=== PATIENT | female | born 1960 | race Caucasian/White ===

== ENCOUNTER 2022-06-05 07:30 | Outpatient (RCR) | payer BC, SELFPAY | END 2022-06-05 10:01 | disposition home or self-care (01) | PROVIDERS: PCP Family Medicine; Visit Provider Family Medicine | DX: M70.61 Trochanteric bursitis, right hip (principal); Z51.89 Encounter for other specified aftercare | CPT/HCPCS: 97035; 97110; 97140; 97162 ==

== ENCOUNTER 2024-09-21 06:22 | Outpatient (CLI) | payer BC, SELFPAY ==
--- NOTE | 2024-09-21 07:55 | P.ANES_ITS ---
Anesthesia Charges Start Date/Time Anesthesia Start Date: 09/21/24 Anesthesia Start Time: 07:30 Stop Date/Time Anesthesia Stop Date: 09/21/24 Anesthesia Stop Time: 07:59 Coding CPT Codes CPT Codes: HANS LWR INTST NDSC NOS - 43089 ([id number]) P2 - PATIENT W/MILD SYST DISEASE, QK - INFORMATION SYSTEMS ARCHITECT 2-4 CNCRNT ANES PROC, QX - MARSHMALLOW MACHINE OPERATOR SVC W/ MD MED DIRECTION
--- NOTE | 2024-09-21 07:55 | W.ANESCHARGE ---
Anesthesia Charges Start Date/Time Anesthesia Start Date: 09/21/24 Anesthesia Start Time: 07:30 Stop Date/Time Anesthesia Stop Date: 09/21/24 Anesthesia Stop Time: 07:59 Coding CPT Codes CPT Codes: HANS LWR INTST NDSC NOS - 67690 ([id number]) P2 - PATIENT W/MILD SYST DISEASE, QK - ADMINISTRATOR OF HOME HEALTH 2-4 CNCRNT ANES PROC, QX - SENIOR ADMINISTRATIVE ASSISTANT SVC W/ MD MED DIRECTION
--- NOTE | 2024-09-21 08:02 | P.ANES_ITS ---
Anesthesia Charges Start Date/Time Anesthesia Start Date: 09/21/24 Anesthesia Start Time: 07:30 Stop Date/Time Anesthesia Stop Date: 09/21/24 Anesthesia Stop Time: 07:59 Coding CPT Codes CPT Codes: HASN LWR INTST NDSC NOS - 70050 ([id number]) P2 - PATIENT W/MILD SYST DISEASE, QK - PULPWOOD DEALER 2-4 CNCRNT ANES PROC, QX - AGENCY SALES REPRESENTATIVE SVC W/ MD MED DIRECTION
--- NOTE | 2024-09-21 08:02 | W.ANESCHARGE ---
Anesthesia Charges Start Date/Time Anesthesia Start Date: 09/21/24 Anesthesia Start Time: 07:30 Stop Date/Time Anesthesia Stop Date: 09/21/24 Anesthesia Stop Time: 07:59 Coding CPT Codes CPT Codes: HANS LWR INTST NDSC NOS - 92121 ([id number]) P2 - PATIENT W/MILD SYST DISEASE, QK - FIREWALL SECURITY ENGINEER 2-4 CNCRNT ANES PROC, QX - RADIO DIRECTOR SVC W/ MD MED DIRECTION
--- OUTSIDE RECORDS SUMMARY | 2024-09-22 02:22 | XMS_ITS | Clinical Summary ---
Author Organization [facility] Address [address] [place] [address] Care Team Providers Care Interior Design Coordinator Name Role Phone Colette Adames MD Primary Care Provider Allergies Active Allergy Reactions Criticality Noted Date Comments Anastrozole Other - Describe In Comment Field 11/25/2014 Lips swelled Medications multivitamin (MVI) tablet Take 1 tablet by mouth once daily. Active cholecalciferol (VITAMIN D) 1,000 unit tablet Take 2,000 Units by mouth once daily. Takes QID Total 8000IU daily Active rosuvastatin (CRESTOR) 10 mg tabletIndications:H yperlipidemia, unspecified hyperlipidemia type Take 1 Tablet (10 mg) by mouth at bedtime. 90 Tablet 3 4 Active lisinopriL (PRINIVIL; ZESTRIL) 40 mg tabletIndications:H ypertension, unspecified type Take 1 Tablet (40 mg) by mouth once daily. 90 Tablet 3 4 Active SUMAtriptan (IMITREX) 25 mg tabletIndications:M igraine without status migrainosus, not intractable, unspecified migraine type Take 1 Tablet (25 mg) by mouth every 2 hours if needed for Migraine. Give at minimum 2hrs apart. Max Dose: 200mg per 24hrs. 10 Tablet 3 5 Active Active Problems Problem Noted Date Diagnosed Date Pancreatic cyst 03/08/2020 Overview (04/10/2021): 9 mm, stable 03/2021, Needs repeat MRI 03/2022 Arthritis of carpometacarpal (CMC) joint of left thumb 02/23/2020 Overview (03/23/2020): Dec 2018: thumb CMC Joint cortisone injection with great benefit for 1 year. February 2020: repeat left thumb CMC Joint cortisone injection. Excellent pain relief through 1 month. Arthritis of carpometacarpal (CMC) joint of righ t thumb 02/23/2020 Overview (03/28/2021): February 2020: right thumb CMC Joint cortisone injection. Significant improvement in pain through 1 month. Mar 2021: repeat right thumb CMC Joint cortisone injection. Routine adult health maintenance 09/03/2014 Overview (09/03/2014): Colonoscopy 08/2014 internal hemorrhoids repeat in 10 years Hyperlipidemia 08/02/2014 Hypertension 08/02/2014 Breast cancer 04/12/2014 TOMPKINS (nonalcoholic steatohepatitis) 03/13/2013 Eye dryness 03/13/2013 Encounters Date Type Department Care Team Description 09/21/2024 Telephone [facility] [address] [place] [address] Rosa Mendez MD Refill Request (Gavilyte-G solution) 09/18/2024 9:40 AM CDT Office Visit [facility] [address] [place] [address] Colette Adames MD Pre-Op Exam (09/28/24 [facility] Lipoma in left ankle Dr. Magana) 09/18/2024 Travel 09/17/2024 Refill [facility] [address] [place] [address] Rosa Mendez MD Refill Request (Gavilyte-G) 09/13/2024 Travel 08/20/2024 Telephone [facility] [address] [place] [address] Ruben Magana DPM surgery scheduling (please call patient to schedule surgery/) 08/18/2024 4:00 PM CDT Office Visit [facility] [address] [facility] [address] Ruben Magana DPM Consult (Bilateral ankle pain, L>R) 08/18/2024 Travel 08/13/2024 Travel 08/06/2024 1:45 PM CDT Ancillary Procedure [facility] [address] [address] 08/05/2024 12:00 PM CDT Ancillary Procedure [facility] [address] [facility] [address] 08/05/2024 11:45 AM CDT Ancillary Procedure [facility] [address] [place] [address] 08/05/2024 10:50 AM CDT Office Visit [facility] [address] [place] [address] Ady Eller MD Ankle Pain/problem (Left Ankle Pain and Swelling. X 2-3 Weeks. Wants to rule out arthritis, Scare tissue or because of age something more serious ) 08/05/2024 Telephone [facility] [address] [facility] [address] Ruben Magana DPM Appointment 08/05/2024 Travel 08/03/2024 Travel from Last 3 Months Immunizations Immunization Administration Dates Next Due COVID-19 vaccine (Moderna 50mcg/0.5mL) 12YO+ BIVALENT PF, MDV 02/05/2022 INFLUENZA, IIV3 PF (AGE >= 6 MO) 03/02/2024 Influenza, IIV3 (Age >=3 years) 03/13/2013 Influenza, IIV4 02/04/2023,,12/01/2019,2018,02/10/2016,02/28/2015,12/03/2013 Influenza,CCIIV4 PRESERV FREE 02/02/2022 MMR 09/23/2017,08/21/2017 Pneumococcal Conj 20-valent (Prevnar 20) 02/22/2023 Tdap 02/22/2023,03/13/2013 Zoster (Shingrix-RZV, recombinant) 04/06/2019, Family History Medical History Relation Name Comments Cancer-prostate Brother Heart Disease Father Hyperlipidemia Father Hypertension Father Diabetes Maternal Grandfather Diabetes Maternal Grandmother Cancer Mother lung ca with me ts Cancer-colon Other first cousin Cancer-colon Paternal Aunt dx age 70's Cancer-breast No Family History Cancer-ovarian No Family History Relation Name Status Comments Brother Father Maternal Grandfather Maternal Grandmother Mother Other Paternal Aunt Social History Tobacco Use Types Packs/Day Years Used Date Smoking Tobacco: Never Smokeless Tobacco: Never Tobacco Cessation:Counseling Given: No Alcohol Use Standard Drinks/Week Comments Yes 0 (1 standard drink = 0.6 oz pur e alcohol) PHQ-2 Answer Date Recorded PHQ-2 TOTAL SCORE 0 03/02/2024 Social Connections Answer Date Recorded Do you often feel lonely or isolated from those around you? 0 08/05/2024 Financial Resource Strain Answer Date R ecorded Difficulty of Paying Living Expenses 3 08/03/2024 Difficulty of Paying Living Expenses Not on file 08/03/2024 Food Insecurity Answer Date Recorded Do you worry your food will run out before you are able to buy more? 1 08/05/2024 Transportation Needs Answer Date Record ed Does lack of transportation keep you from medica l appointments? 1 08/05/2024 Does lack of transportation keep you from work, meetings or getting things that you need? 1 08/05/2024 Housing Stability Answer Date Recorded What is your housing situation today? 1 08/05/2024 Utilities Answer Date Recorded Do you have trouble paying f or utilities (for example, heat, electricity, water, phone)? 1 08/05/2024 Comments No Sex and Gender Information Value Date Recorded Sex Assigned at Not on file Legal Sex Female 10:24 AM DIRECT MAIL MANAGER Gender Identity Not on file Sexual Orientation Not on file Travel History Travel Start Travel End [place] 08/23/2024 09/13/2024 Obstetrics History Para Term AB IAB SAB Ectopic Multiple Livin g Live Births 3 2 2 1 1 2 Date Outcome GA Total Labor Labor/2nd/3rd Weight Sex Type Anes PTL Carolyn A1 A5 Name Clin Term Term SAB Last Filed Vital Signs Vital Sign Reading Time Taken Comments Blood Pressure 143/83 09/18/2024 9:45 AM CDT Pulse 71 09/18/2024 9:45 AM CDT Temperature 36.8 C (98.2 F) 12/04/2021 1:25 PM CDT Respiratory Rate 14 04/20/2014 5:45 PM DIRECT MAIL MANAGER Oxygen Saturation 100% 09/18/2024 9:45 AM CDT Inhaled Oxygen Concentration - - Weight 85.7 kg (189 lb) 09/18/2024 9:45 AM CDT Height 159 cm (5' 2.6) 09/18/2024 9:45 AM CDT Body Mass Index 33.91 09/18/2024 9:45 AM CDT Plan of Treatment Upcoming Encounters Date Type Department Care Team (Late st Contact Info) Description 09/28/2024 7:30 AM CDT Office Visit [facility] at [address] [address] Ruben Magana DPM [address] [place] [address] 09/30/2024 9:30 AM CDT Office Visit [facility] [address] [place] [address] Ruben Magana DPM [address] [place] [address] 10/14/2024 9:30 AM CDT Office Visit [facility] [address] [place] [address] Ruben Magana DPM [address] [place] [address] 11/11/2024 9:30 AM CDT Office Visit [facility] [address] [place] [address] Ruben Magana DPM [address] [place] [address] Health Maintenance Due Date Last Done Comments RSV vaccine for adults or (1 - Risk 60-74 years 1-dose series) 2019 COVID-19 vaccine series ( season) 2023 04/04/2023, 02/05/2022, 07/12/2021, Additional history exists Influenza Vaccine (#1) 2024 , 02/04/2023, 02/02/2022, Additional history exists Colonoscopy through age 75 12/24/202412/24, 12/25/2019, 12/25/2019, Additional history exists Mammogram for age 45-75 03/04/2025 03/04/20 24, 03/14/2023, 03/13/2022, Additional history exists Depression screening for age 12+ 03/05/2025 03/05/2024, 03/04/2024, 03/03/2024, Additional history exists BMI (ht and wt on same day) for age 18+ 09/18/2025 09/18/2024, 03/02/2024, 04/15/2023, Additional history exists Lipids for age 45-75 03/03/2029 03/03/2024, 02/22/2023, 04/30/2022, Additional history exists Tetanus booster 02/22/2033 02/22/2023, 03/13/2013 Hepatitis C screening for age 18-79 Completed 02/28/2015 Zoster (shingles) series for age 50+ Completed 04/06/2019, 12/22/2018 HIV for age 15-65 Completed 02/22/2022 Pneumococcal series for age 50+ Completed 02/22/2023 Tdap Completed 02/22/2023, 03/13/2013 Hepatitis B series for 19+ Aged Out N o longer eligible based on patient's age to complete this topic Procedures Procedure Name Priority Date/Time Associated Diagnosis Comments BASIC METABOLIC PANEL Routine 09/18/2024 10:15 AM CDT Hypertension US LOWER EXTREMITY SOFT TISSUE LEFT Routine 08/06/2024 2:25 PM CDT Ankle swelling, left XR ANKLE 3 VIEWS RIGHT Routine 08/05/2024 12:02 PM CDT Ankle pain XR ANKLE 3 VIEWS LEFT Routine 08/05/2024 12:02 PM CDT Ankle swelling, left XR MAMMO DANIELA BILAT SCREEN Routine 03/04/2024 1:34 PM DIRECT MAIL MANAGER Visit for screening mammogram LIPID PANEL W REFLEX MEASURED LDL Routine 03/03/2024 7:56 AM DIRECT MAIL MANAGER Hyperlipidemia, unspecified hyperlipidemia type ANTI HIV 1/2 Routine 02/22/2022 9:00 AM DIRECT MAIL MANAGER Screening for HIV (human immunodeficiency virus) COLONOSCOPY SCREENING Routine 12/25/2019 8:55 AM CDT Encounter for screening for colorectal cancer in high risk patient ANTI HCV Routine 02/28/2015 10:18 AM DIRECT MAIL MANAGER Need for hepatitis C screening test from Last 3 Months or Most Recently Relevant to Health Maintenance Results * BASIC METABOLIC PANEL (09/18/2024 10:15 AM CDT) GLUCOSE 82 65 - 99 mg/dL [facility] Comment: Fasting reference interval UREA NITROGEN (BUN) 14 7 - 25 mg/dL [facility] CREATININE 0.84 0.50 - 1.05 mg/dL [facility] EGFR 78 > OR = 60 mL/min/1. 73m2 [facility] BUN/CREATININE RATIO SEE NOTE: 6 - 22 (calc) [facility] Comment: Not Reported: BUN and Creatinine are within reference range. SODIUM 141 135 - 146 mmol/L [facility] POTASSIUM 4.4 3.5 - 5.3 mmol/L [facility] CHLORIDE 104 98 - 110 mmol/L [facility] CARBON DIOXIDE 30 20 - 32 mmol/L [facility] ELECTROLYTE BALANCE 7 7 - 17 mmol/L (calc) [facility] CALCIUM 9.4 8.6 - 10.4 mg/dL [facility] Blood BLOOD SPECIMEN / Unknown 09/18/2024 10:15 AM CDT 09/18/2024 10:16 AM CDT Colette Adames MD CHEMISTRY Final R esult [facility] [address] [place] [address], [place] [phone] [facility] [address] [place] [address] * US LOWER EXTREMITY SOFT TISSUE LEFT (08/06/2024 2:25 PM CDT) Anatomical Region Laterality Modality ARM R Ultrasound 08/10/2024 9:51 AM CDT Narrative 08/10/2024 9:51 AM CDT For Patients: As a result of the Cures Act, medical imaging exams and procedure reports are released immediately into your electronic medical record. You may view this report before your referring provider. If you have questions, please contact your health care provider. Indication: Ankle swelling, left. Technique: Ultrasound lower extremity soft tissue left with color Doppler analysis. Comparison: None. Findings/Impression: A fatty lesion is present in the left ankle area of concern, this lesion measures 4 x 4 x 1 cm. This has the appearance of a typical lipoma. No other abnormality evident. Dictated by Shane Soriano MD @ 08/10/2024 9:51:11 AM (Electronically Signed) Procedure Note Shane Soriano MD - 08/10/2024 For Patients: As a result of the Cures Act, medical imagingexams and procedure reports are released immediately into your electronicmedical record. You may view this report before your referring provider.If you have questions, please contact your health care provider. Indication: Ankle swelling, left. Technique: Ultrasound lower extremity soft tissue left with color Doppler analysis. Comparison: None. Findings/Impression: A fatty lesion is present in the left ankle area of concern, this lesionmeasures 4 x 4 x 1 cm. This has the appearance of a typical lipoma. Noother abnormality evident. Dictated by Shane Soriano MD @ 08/10/2024 9:51:11 AM (Electronically Signed) Ady Eller MD US Final Result * XR ANKLE 3 VIEWS RIGHT (08/05/2024 12:02 PM CDT) Anatomical Region Laterality Modality ANKLES, ANKLE R Computed Radiogr aphy 08/06/2024 2:28 PM CDT Narrative 08/06/2024 2:28 PM CDT For Patients: As a result of the Cures Act, medical imaging exams and procedure reports are released immediately into your electronic medical record. You may view this report before your referring provider. If you have questions, please contact your health care provider. Indication: Right ankle pain Technique: Right ankle 3 views Comparison: None Findings: Plantar and posterior calcaneal spurs. No fracture. No joint effusion. No osteochondral defect. Impression: Small calcaneal spurs. Dictated by Marshall Ryan MD @ 08/06/2024 2:28:41 PM (Electronically Signed) Procedure Note Marshall Ryan MD - 08/06/2024 For Patients: As a result of the s Act, medical imagingexams and procedure reports are released immediately into your electronicmedical record. You may view this report before your referring provider.If you have questions, please contact your health care provider. Indication: Right ankle pain Technique: Right ankle 3 views Comparison: None Findings: Plantar and posterior calcaneal spurs. No fracture. No joint effusion. Noosteochondral defect. Impression: Small calcaneal spurs. Dictated by Marshall Ryan MD @ 08/06/2024 2:28:41 PM (Electronically Signed) Ady Eller MD GENERAL IMAGING Final Result * XR ANKLE 3 VIEWS LEFT (08/05/2024 12:02 PM CDT) Anatomical Region Laterality Modality ANKLES, ANKLE L Computed Radiogr aphy 08/06/2024 2:26 PM CDT Narrative 08/06/2024 2:26 PM CDT For Patients: As a result of the Cures Act, medical imaging exams and procedure reports are released immediately into your electronic medical record. You may view this report before your referring provider. If you have questions, please contact your health care provider. Indication: Ankle swelling, left Technique: Left ankle 3 views Comparison: None Findings: Plantar calcaneal spur. No fracture. Mortise intact. Impression: Plantar calcaneal spur. Dictated by Marshall Ryan MD @ 08/06/2024 2:26:43 PM (Electronically Signed) Procedure Note Marshall Ryan MD - 08/06/2024 For Patients: As a result of the s , medical imagingexams and procedure reports are released immediately into your electronicmedical record. You may view this report before your referring provider.If you have questions, please contact your health care provider. Indication: Ankle swelling, left Technique: Left ankle 3 views Comparison: None Findings: Plantar calcaneal spur. No fracture. Mortise intact. Impression: Plantar calcaneal spur. Dictated by Marshall Ryan MD @ 08/06/2024 2:26:43 PM (Electronically Signed) Ady Eller MD GENERAL IMAGING Final Result * XR MAMMO DANIELA BILAT SCREEN (03/04/2024 1:34 PM DIRECT MAIL MANAGER) Anatomical Region Laterality Modality BREASTS, Breast Left, Breast Right Bilateral Mammography Impressions 03/04/2024 2:48 PM DIRECT MAIL MANAGER There is no radiographic evidence for malignancy. Recommend annual mammograms. MAMMOGRAM ASSESSMENT: ACR 1 Negative PATIENTS: You will also receive a letter with your examination results in an easy to read format. If you have questions about your results, please contact your referring provider. Narrative 03/04/2024 2:48 PM DIRECT MAIL MANAGER For Patients: As a result of the s Act, medical imaging exams and procedure reports are released immediately into your electronic medical record. You may view this report before your referring provider. If you have questions, please contact your health care provider. XR MAMMO DANIELA BILAT SCREEN [[id number]] CLINICAL HISTORY: This is an asymptomatic 63 y.o. patient. INDICATION FOR EXAM: Mammogram Screening. TECHNIQUE: CC & MLO views were obtained. This study was evaluated with the assistance of Computer-Aided Detection. Breast Tomosynthesis was used in interpretation. COMPARISON FILM: Yes 03/14/23 [facility] 03/13/22 [facility] FINDINGS: There are scattered areas of fibroglandular density. There are no dominant masses, suspicious micro calcifications or areas of architectural distortion. Colette Adames MD MAMMO Final R esult * (ABNORMAL) LIPID PANEL W REFLEX MEASURED LDL (03/03/2024 7:56 AM DIRECT MAIL MANAGER) CHOLESTEROL, TOTAL 227(H) <200 mg/dL [facility] HDL CHOLESTEROL 82 > OR = 50 mg/dL [facility] TRIGLYCERIDES 131 <150 mg/dL [facility] LDL-CHOLESTEROL 120(H) mg/dL (calc) [facility] Comment: Reference range: <100 Desirable range <100 mg/dL for primary prevention; <70 mg/dL for patients with CHD or diabetic patients with > or = 2 CHD risk factors. LDL-C is now calculated using the Zack-Valle calculation, which is a validated novel method providing better accuracy than the Friedewald equation in the estimation of LDL-C. Zack SS et al. JANET. 2013;310(19): 9176-5191 (http://education.Sapheneia/faq/VKV850) CHOL/HDLC RATIO 2.8 <5.0 (calc) [facility] NON HDL CHOLESTEROL 145(H) <130 mg/dL (calc) [facility] Comment: For patients with diabetes plus 1 major ASCVD risk factor, treating to a non-HDL-C goal of <100 mg/dL (LDL-C of <70 mg/dL) is considered a therapeutic option. Blood BLOOD SPECIMEN / Unknown 03/03/2024 7:56 AM DIRECT MAIL MANAGER 03/03/2024 7:56 AM DIRECT MAIL MANAGER Colette Adames MD CHEMISTRY Final R esult [facility] [address] [place] [address], [facility] [address] [place] [address] * ANTI HIV 1/2 [16892.0] (02/22/2022 9:00 AM DIRECT MAIL MANAGER) HIV-1/HIV-2 ANTIBODY Non-Reacti ve Non-Reacti ve 02/24/2022 2:49 AM DIRECT MAIL MANAGER [facility] Comment:HIV-1 p24 and HIV-1/ HIV-2 Ab not detected. Blood BLOOD SPECIMEN / Unknown Venipuncture / Unknown 02/22/2022 9:00 AM DIRECT MAIL MANAGER 02/22/2022 9:04 AM DIRECT MAIL MANAGER us Colette Adames MD SEND OUTS Final R esult [facility] [address] [place] [address], [place] * COLONOSCOPY SCREENING (12/25/2019 8:55 AM CDT) us Colette Adames MD GI PROCEDURE ORD Final Result * ANTI HCV [28770.2] (02/28/2015 10:18 AM DIRECT MAIL MANAGER) HEPATITIS C ANTIBODY Non-Reacti ve Non-Reacti ve 02/28/2015 4:41 PM DIRECT MAIL MANAGER [facility] Blood specimen (specimen) BLOOD SPECIMEN / Unknown Venipuncture / Unknown 02/28/2015 10:18 AM DIRECT MAIL MANAGER 02/28/2015 10:18 AM DIRECT MAIL MANAGER Narrative [facility] - 02/28/2015 4:41 PM DIRECT MAIL MANAGER Antibodies to HCV not detected; does not exclude the possibility of exposure to HCV. us Colette Adames MD SEND OUTS Final R esult [facility] [address] [place] [address], [place] from Last 3 Months or Most Recently Relevant to Health Maintenance Insurance [id number] [place] [id number] [facility] [place] [address] [place] [id number] Advance Directives * Full Code (Latest Code Status on File) Date Activated Date Inactivated Comments 04/20/2014 11:17 AM 04/20/2014 9:34 PM Care Teams Interior Design Coordinator Relationship Specialty Start Date End Date Colette Adames MD [address] [facility] [id number] PCP - General Family Practice 03/13/13
--- OUTSIDE RECORDS SUMMARY | 2024-09-22 02:22 | XMS_ITS | Clinical Summary ---
Author Organization [facility] Address [address] [place] [address] Care Team Providers Care Knife Glazer Name Role Phone None Reported, Pcp Primary Care Provider Unavail able Source Comments Patient records contain information from all sites at [facility]. For routine questions regarding patient records, call [phone] during business hours, M-F 8:00 AM - 5:00 PM Central Time. Record requests for emergency care only can be directed to [phone] at any time.[facility] Allergies No known active allergies Medications lisinopriL (PRINIVIL,ZEST RIL) 40 mg tablet Take 1 tablet by mouth daily. 5 Active rosuvastatin (CRESTOR) 10 mg tablet Take 1 tablet by mouth at bedtime. 3 Active acetaminophen (TYLENOL) 500 mg tablet Take 2 tablets (1,000 mg total) by mouth every 6 (six) hours as needed for pain. Alternate with ibuprofen every 3 hours. Do not exceed 4000 mg or 4 g in 24 hours. 4 Active ibuprofen (ADVIL,MOTRIN) 200 mg tablet Take 3 tablets (600 mg total) by mouth every 6 (six) hours as needed for pain. Alternate with acetaminophen every 3 hours. 4 Active oxyCODONE (ROXICODONE) 5 mg immediate release tabletIndicati ons:Acute Pain Take 1 tablet (5 mg total) by mouth every 6 (six) hours as needed for pain Indication: Acute Pain. Not relieved by over the counter pain medications. 5 tablet 07/25/2023 12:44 PM CDT 4 Active sennosides-doc usate sodium (SENOKOT-S) 8.6-50 mg per tablet Take 2 tablets by mouth 2 (two) times a day as needed for constipation. While on narcotics. 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 04/12/2014 Steatohepatitis Non Alcoholic 03/13/2013 Family History Medical History Relation Name Comments Hyperlipidemia Brother 1 Mati Moeor Hypertension Brother 1 Mati Chamberlain Prostate cancer Brother 1 Mati Bulmaro Hyperlipidemia Brother 2 Betito Chamberlain Hypertension Brother 2 Betito Chamberlain Sleep apnea Brother 2 Betito Bulmaro Arthritis Father Renaldo Chamberlain Coronary artery disease Father Renaldo Moeor Hyperlipidemia Father Renaldostefano Moeor Hypertension Father Renaldostefano Moeor Sleep apnea Father Renaldo Moeor Prostate cancer Father's Brother 1 Noé Moeor Other cancer Father's Brother 2 Noel Chamberlain Brain tu mor Coronary artery disease Father's Brother 3 [place] G regor Colon cancer Father's Sister 1 Brianda Rodríguez Pancreatic cancer Father's Sister 2 Bette Bojorquez Coronary artery disease Maternal Grandfather Renny Be necke Diabetes Maternal Grandfather Renny Benecke Coronary artery disease Maternal Grandmother Naomy Ludwig ecke Diabetes Maternal Grandmother Naomy Benecke Obesity Maternal Grandmother Naomy Benecke Lung cancer Mother Robyn Chamberlain Osteoporosis Mother Robyn Chamberlain Diabetes Mother's Brother Renny H. Benecke Pancreatic cancer Paternal Grandfather [place] Bulmaro Obesity Paternal Grandmother Karla Moeor Hyperlipidemia Sister Mallorie Wall Relation Name Status Comments Brother 1 Mati Bulmaro Brother 2 Betito Moeor Father Renaldo Bulmaro Father's Brother 1 Noé Bulmaro Father's Brother 2 Noel Moeor Father's Brother 3 Thaddeus Bulmaro Father's Sister 1 Brianda Rodríguez Father's Sister 2 Bette Bojorquez Maternal Grandfather Renny Benecke Maternal Grandmother Naomy Pool Mother Robyn Chamberlain Mother's Brother Renny Pool Paternal Grandfather Jaspal Chamberlain Paternal Grandmother Karla Chamberlain Sister Mallorei Wall Social History Tobacco Use Types Packs/Day Years Used Date Smoking Tobacco: Never Smokeless Tobacco: Never Tobacco Cessation:Counseling Given: Not Answered Comments:Experimental use in High School Alcohol Use Standard Drinks/Week Comments Yes 2 (1 standard drink = 0.6 oz pur e alcohol) [facility] Utilities Answer Date Recorded In the past 12 months has e [employer], gas, oil, or water [employer] threatened to shut off services in your home? No 04/30/2023 Hunger Vital Sign Answer Date Recorded Within the past 12 months, y ou worried that your food would run out before you got the money to buy more. Never true 04/30/19 24 Within the past 12 months, t he food you bought just didn't last and you didn't have money to get more. Never true 04/30/2023 PRAPARE - Transportation Answer Date Re corded In the past 12 months, has l ack of transportation kept you from medical appointments or from getting medications? No 08/2023 In the past 12 months, has l ack of transportation kept you from meetings, work, or from getting things needed for daily living? No 04/30/2023 Housing Stability Answer Date Recorded What is your living situation today? I have a [facility] place to live 04/30/2023 Comments No Sex and Gender Information Value Date Recorded Sex Assigned at Female 04/30/2023 9:23 AM NUDE MODEL Legal Sex Female 8:12 PM NUDE MODEL Gender Identity Female 04/30/2023 9:23 AM NUDE MODEL Sexual Orientation Straight 04/30/2023 9: 23 AM NUDE MODEL Last Filed Vital Signs Vital Sign Reading Time Taken Comments Blood Pressure 125/76 07/25/2023 10:45 AM CDT Pulse 61 07/25/2023 10:45 AM CDT Temperature 36.4 C (97.5 F) 07/25/2023 12:41 PM CDT Respiratory Rate 18 07/25/2023 10:45 AM CDT Oxygen Saturation 97% 07/25/2023 10:45 AM CDT Inhaled Oxygen Concentration - - Weight 82.1 kg (181 lb) 07/25/2023 6:40 AM CDT Height 160 cm (5' 3) 07/25/2023 6:40 AM CDT Body Mass Index 32.06 07/25/2023 6:40 AM CDT Plan of Treatment Health Maintenance Due Date Last Done Comments CT Colonography 1959 Cologuard 1959 FIT 1960 HIV Screening 1960 Hepatitis C Screening 1960 Office Visit for Blood Pressure Check / Re-check 1959 Hepatitis A Vaccines (1 of 2 - Risk 2-dose series) 11/03/1978 Hepatitis B Vaccines (1 of 3 - Risk 3-dose series) 2019 COVID-19 Vaccine ( season) 2023 04/04/2023, 02/05/2022, 07/12/2021, Additional history exists Creatinine Level (Kidney Function Test) 02/23/2024 02/22/2023, 02/22/2022, 01/16/2021, Additional history exists Potassium Level 02/23/2024 02/22/2023, 12/0 03/2021, 01/16/2021, Additional history exists Sodium Level 02/23/2024 02/22/2023, 12/0 03/2021, 01/16/2021, Additional history exists Depression Screening (Annual PHQ-2) 03/25/2024 Mammogram 03/04/2025 03/04/2024, 02/22, 03/14/2023, Additional history exists Fasting Glucose for Diabetes Screening 03/21/2026 03/21/2023, 02/22/2023, 02/22/2022, Additional history exists Lipid (Cholesterol) Screening 02/23/2028 02/22/2023, 04/30/2022, 02/22/2022, Additional history exists Colonoscopy 12/24/2029 12/25/2019 Colorectal Cancer Screening 12/24/2029 DTaP,Tdap,and Td Vaccines (3 - Td or Tdap) 02/22/2033 02/22/2023, 03/13/2013 Zoster Vaccines Completed 04/06/2019, 12/22/2018 Pneumococcal vaccine (50+ years) Completed 02/22/2023 Influenza Vaccine Completed 03/02/2024, , 02/02/2022, Additional history exists HPV Vaccines Aged Out No longer eligi ble based on patient's age to complete this topic IPV Vaccines Aged Out No longer eligi ble based on patient's age to complete this topic Procedures Procedure Name Priority Date/Time Associated Diagnosis Comments OUTSIDE MG MAMMOGRAM Routine 03/23/2014 1:19 PM NUDE MODEL from Last 3 Months or Most Recently Relevant to Health Maintenance Results * Outside MG Mammogram (03/23/2014 1:19 PM NUDE MODEL) 03/23/2014 1:19 PM NUDE MODEL Addenda Addendum by ProviderSteven M.D. on 03/23/2014 1:19 PM NUDE MODEL ODM^^^MCR XR FFDM MAMMO UNI ADDL VIEWS RIGHT 03/23/2014 13:19:16 Historical Provider IMG BI PROCEDURES Final Resu lt [facility] [address] [place] [address] from Last 3 Months or Most Recently Relevant to Health Maintenance Insurance [facility] [[email or web address]] Care Teams Knife Glazer Relationship Specialty Start Date End Date None Reported, Pcp PCP - General 01/31/24
== END 2024-09-21 06:23 | disposition home or self-care (01) ==
LOC: OP CLINIC 06:24
PROVIDERS: PCP Family Medicine; Visit Provider Surgery
DX: Z12.11 Encounter for screening for malignant neoplasm of colon (principal); Z15.09 Genetic susceptibility to other malignant neoplasm; D12.2 Benign neoplasm of ascending colon; D17.5 Benign lipomatous neoplasm of intra-abdominal organs; K57.30 Diverticulosis of large intestine without perforation or abscess without bleeding
CPT/HCPCS: 00811; 45385; J2704

== ENCOUNTER 2024-09-28 06:04 | Day surgery (SDC) | payer BC, SELFPAY ==
[2024-09-28 06:15] VITALS: BP 155/89; PULSE 81; RESP 16; TEMP 36.7; O2SAT 97; BMI 35.2
[2024-09-28] MEDS: LACTATED RINGERS 1000 ML 1,000 ML 100 ML IV (06:41)
[2024-09-28] MEDS: SODIUM CHLORIDE 0.9 % (FLUSH) 10 ML SYRINGE IVF (06:43)
[2024-09-28] MEDS: BUPIVACAINE 0.25% 30 ML INJECTION (07:20)
[2024-09-28 08:20] VITALS: BP 126/76; PULSE 70; RESP 16; TEMP 36.1; O2SAT 92
--- NOTE | 2024-09-28 08:20 | P.ANES_ITS ---
Anesthesia Charges Start Date/Time Anesthesia Start Date: 09/28/24 Anesthesia Start Time: 07:15 Stop Date/Time Anesthesia Stop Date: 09/28/24 Anesthesia Stop Time: 08:20 Coding CPT Codes CPT Codes: ANESTH LOWER LEG BONE SURG - 38963 ([id number]) P2 - PATIENT W/MILD SYST DISEASE, QK - COAT FELLER 2-4 CNCRNT ANES PROC, QX - LANDCARE FACILITATOR SVC W/ MD MED DIRECTION
--- NOTE | 2024-09-28 08:20 | W.ANESCHARGE ---
Anesthesia Charges Start Date/Time Anesthesia Start Date: 09/28/24 Anesthesia Start Time: 07:15 Stop Date/Time Anesthesia Stop Date: 09/28/24 Anesthesia Stop Time: 08:20 Coding CPT Codes CPT Codes: ANESTH LOWER LEG BONE SURG - 30573 ([id number]) P2 - PATIENT W/MILD SYST DISEASE, QK - BOARD WORKER 2-4 CNCRNT ANES PROC, QX - BLOCK MASON SVC W/ MD MED DIRECTION
--- NOTE | 2024-09-28 08:22 | P.ANES_ITS ---
Anesthesia Charges Start Date/Time Anesthesia Start Date: 09/28/24 Anesthesia Start Time: 07:15 Stop Date/Time Anesthesia Stop Date: 09/28/24 Anesthesia Stop Time: 08:20 Coding CPT Codes CPT Codes: ANESTH SKIN EXT/PER/ATRUNK - 95179 ([id number]) QK - BRICKLAYER HELPER 2-4 CNCRNT ANES PROC, P2 - PATIENT W/MILD SYST DISEASE, QX - LINING STAMPER SVC W/ MD MED DIRECTION
--- NOTE | 2024-09-28 08:22 | W.ANESCHARGE ---
Anesthesia Charges Start Date/Time Anesthesia Start Date: 09/28/24 Anesthesia Start Time: 07:15 Stop Date/Time Anesthesia Stop Date: 09/28/24 Anesthesia Stop Time: 08:20 Coding CPT Codes CPT Codes: ANESTH SKIN EXT/PER/ATRUNK - 22262 ([id number]) QK - TUBE COATER 2-4 CNCRNT ANES PROC, P2 - PATIENT W/MILD SYST DISEASE, QX - MEDICAL RECORD LIBRARIANS TEACHER SVC W/ MD MED DIRECTION
--- NOTE | 2024-09-28 08:22 | W.PM.PODPROC ---
Date of Procedure: 09/28/24 Surgeon: Ruben Magana DPM Pre-op Diagnosis: Lipoma left foot Post-op Diagnosis: lipoma left foot Type of Procedure: excision of lipoma left foot Indications: patient has had longstanding pain due to a enlarging lipoma left foot. She has elected surgical excision. I reviewed the procedure, recovery, expectations and potential complications. These include but not limited to: Poor wound healing, infection, recurrence, continued pain, potentially future surgery, deep venous thrombosis, pulmonary embolism possible . She understands risks written consent was obtained. Site marked. Procedure Description: Patient's from the operating room placed supine position on operating table. IV sedation was initiated local anesthetic injected in the left foot. She was prepped and draped in sterile fashion. Standard time-out protocol followed. Left foot was exsanguinated and the tourniquet inflated. Linear incisions made over the lipoma and was made parallel to the intermediate dorsal cutaneous nerve. Incision was carried down through skin. The lipoma was immediately identified. Margins were identified and bluntly dissected. Intermediate dorsal cutaneous nerve was identified carefully reflected throughout the case. Lipoma was removed in total and sent to pathology. All bleeding vessels cauterized. Wound was thoroughly irrigated normal sterile saline. Subcutaneous tissues reapproximated with 4-0 Monocryl and skin closed with 4-0 Prolene. Sterile bolster dressing was applied. Tourniquet was released. She tolerated anesthesia and procedure well was transferred from OR to PACU vital signs stable and vascular status intact. She was given both written and verbal postop instructions. She is weight-bearing as tolerated. She is given oxycodone for pain. Should follow up in clinic in 2 days. Anesthesia: MAC and local Hemostasis: ankle Estimated blood loss (mL): 2 Specimens: specimen obtained, sent to pathology Disposition: same day
[2024-09-28 08:30] VITALS: BP 128/80; PULSE 69; RESP 16; O2SAT 94
[2024-09-28 08:45] VITALS: BP 146/77; PULSE 66; RESP 16; O2SAT 99
[2024-09-28 09:00] VITALS: BP 145/81; PULSE 71; RESP 16; O2SAT 99
--- NOTE | 2024-09-28 09:33 | SUR.PHASEII ---
Patient's ride arrived. Patient verbalized readiness to be discharged and understanding of discharge instructions.
== END 2024-09-28 09:30 | disposition home or self-care (01) ==
PROVIDERS: PCP Family Medicine; Visit Provider Podiatrist
PROC: (CPT 28039; principal; 2024-09-28 07:15)
DX: D17.24 Benign lipomatous neoplasm of skin and subcutaneous tissue of left leg (principal)
CPT/HCPCS: 28039; 00400; 01480; J0665; J0690; J1100; J1885; J2250; J2405; J2704; J3010; J7120